=== PATIENT | male | born 1965 ===

== ENCOUNTER → 2023-11-21 06:37 | Day surgery (SDC) | payer BC, SELFPAY | LOC: GI 06:37 | PROVIDERS: ATTENDING PHYSICIAN Specialist | DX: Z12.11 Encounter for screening for malignant neoplasm of colon (principal); K57.30 Diverticulosis of large intestine without perforation or abscess without bleeding; K62.1 Rectal polyp; Z86.010 Personal history of colon polyps | CPT/HCPCS: 45380; 88305 ==